=== PATIENT | male | born 1975 | race Caucasian/White ===

== ENCOUNTER 2016-05-29 10:23 | Emergency (ER) | payer SELFPAY ==
[~2016-05-29] VITALS: Ht 198.1 cm; Wt 137.0 kg
[2016-05-29 10:53] VITALS: Ht 198.1 cm; Wt 137.0 kg
--- NOTE | 2016-05-29 13:32 | RADRPT ---
PROCEDURE: Bilateral lower extremity Doppler CLINICAL INDICATION: Bilateral leg edema TECHNIQUE: Saba scale, color, and pulse wave Doppler examination of the veins of both lower extrem ities was performed with a high frequency linear transducer. The images were reviewed on a PACS wor kstation. COMPARISON: None. FINDINGS: There is no evidence for deep venous thrombosis of either lower extremity. The deep veins were full y compressible and normal augmentation was seen. No Jones's cyst was seen. No definite calf vein th rombus. IMPRESSION: No definite evidence for deep venous thrombosis of either lower extremity. RPTAT: [facility]BE Physician Mina Date Time Electronically viewed and signed by Stefanie Young Physician on 05/29/2016 13:31 LE/
--- NOTE | 2016-05-29 13:40 | ERD ---
ER Documentation Chief Complaint Date/Time DATE: 05/29/16 TIME: 13:37 Chief Complaint B/L LEG PAIN AND SWELLING TODAY WHEN HE WOKE UP , NO SOB HPI Patient is a 40-year-old male who states that he developed tingling and "shooting pain" in his bilateral legs today. He denies swelling or erythema. He states that he has not had this in the past. He does have a history of numbness and tingling in his right leg after sustaining an injury 3 years ago to his left leg. He denies difficulty walking. 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 He denies pain in his hips or knees. He states that he also has chest flutter that comes and goes. He also states that he is nervous about what this could and is having some anxiety. He states that he does not like coming to the doctor and is nervous about being at the ER. He denies chest pain, cough, shortness of breath or difficulty breathing. He denies fever , chills, nausea, vomiting or diarrhea. He denies headache, dizziness. However he states that after being in the waiting room, his pain and symptoms have resolved in his legs. He currently does not have complaints in the ED. ROS All systems reviewed and are negative except as per history of present illness. PMhx/Soc History of Surgery: No Anesthesia Reaction: No Hx Neurological Disorder: No Hx Respiratory Disorders: No Hx Cardiac Disorders: No Hx Psychiatric Problems: No Hx Miscellaneous Medical Probl: No Hx Alcohol Use: No Hx Substance Use: No Hx Tobacco Use: No Physical Exam Vitals Physical Exam GENERAL: Well-developed, well-nourished male. Appears in mild distress HEAD: Normocephalic, atraumatic. LUNG: Clear to auscultation bilaterally. No rhonchi, wheezing, rales or coarse breath sounds. HEART: Regular rate and rhythm. No murmurs, rubs or gallops. ABDOMEN: No scars, ecchymosis or rashes noted. Soft, nontender, and nondistended. Positive bowel sounds in all four quadrants. No rebound tenderness , no guarding. (-) McBurneys point tenderness. No CVA tenderness. BACK: No midline tenderness. Extremities: Equal pulses bilaterally. No peripheral clubbing, cyanosis or edema. No unilateral leg swelling. negative winnie sign. no erythema or tenderness. NEUROLOGIC: Alert and oriented. Moving all four extremities. 5/5 strength in all extremities. Normal speech. Steady gait. CN II-XII intact. SKIN: Normal color. Warm and dry. No rashes or lesions. Capillary refill < 2 seconds Procedures/MDM ER COURSE: I kept the patient and/or family informed of laboratory and diagnostic imaging results throughout the emergency room course. EKG, MONITORS, & DIAGNOSTIC IMAGING: EKG performed, read by Dr. Parekh 112 bpm, normal sinus rhythm, normal axis, no acute ST segment changes, no T wave inversion [place] [id number] Radiology Main Line: [phone] DIAGNOSTIC IMAGING REPORT Patient: HUBER HERNANDEZ : 1975 Age: 40 Sex: M MR #: [id number] DOS: 05/29/16 1232 Ordering MD: KATHY HESTER PA-C Location: [facility] Room/Bed: PROCEDURE: Chest Radiograph. CLINICAL INDICATION: Chest pressure TECHNIQUE: 2 frontal views of the chest para COMPARISON: None available FINDINGS: The heart is magnified. The cardiomediastinal silhouette is within normal limits. There is a calcified granuloma in the left mid lung zone. Lungs are otherwise clear. No infiltrate or effusion is seen. The bones are intact. IMPRESSION: 1. No evidence of acute cardiopulmonary disease. 2. Old granulomatous disease. RPTAT: KK .Rashad Dao MD, MD Date Time Electronically viewed and signed by .Rashad Dao MD, MD on 2016 13:51 .B/ CC: KATHY HESTER PA-C [place] [id number] Radiology Main Line: [phone] DIAGNOSTIC IMAGING REPORT Patient: HUBER HERNANDEZ : 1975 Age: 40 Sex: M MR #: [id number] DOS: 05/29/16 1232 Ordering MD: KATHY HESTER PA-C Location: [facility] Room/Bed: PROCEDURE: Bilateral lower extremity Doppler CLINICAL INDICATION: Bilateral leg edema TECHNIQUE: Saba scale, color, and pulse wave Doppler examination of the veins of both lower extremities was performed with a high frequency linear transducer. The images were reviewed on a PACS workstation. COMPARISON: None. FINDINGS: There is no evidence for deep venous thrombosis of either lower extremity. The deep veins were fully compressible and normal augmentation was seen. No Jones's cyst was seen. No definite calf vein thrombus. IMPRESSION: No definite evidence for deep venous thrombosis of either lower extremity. RPTAT: [facility]BE Physician Mina Date Time Electronically viewed and signed by Stefanie Young Physician on 05/29/2016 13 :31 LE/ CC: KATHY HESTER PA-C MEDICAL DECISION MAKING: This is a 40 year old male who presents with bilateral leg pain. Vital signs were reviewed. Patient is afebrile. Patient is not hypoxic. Patient has leg pain of uncertain etiology. I have consulted with Dr. Henao who has reviewed the imaging studies as well as EKG. Low suspicion for dislocation, fracture, septic joint, compartment syndrome, osteomyelitis, avascular necrosis, DVT, Achilles tendon rupture, cellulitis. At this time, unable to rule out any tendon and ligament injuries. Low suspicion for ACS, PE, AAA, dissection, DVT. I have very low suspicion for DVT or PE at this time as patient does not have leg swelling, no erythema, no SOB, no recent travel and no risk factors. Patient is asymptomatic on exam except for his increase in heart rate, which is likely related to stress and nerves he is experiencing in the ED. He states that he is feeling much better in regards to his nerves and anxiety after being in the waiting room and hearing his result. DISCHARGE: At this time, patient is stable for discharge and outpatient management with no new complaints during the ER course. Patient will be discharged home with instructions to recheck for new or worsening symptoms such as fever, nausea, weakness, LOC and to follow up with primary care in the next 1-2 days. Patient was advised to return to the ER for any new or worsening symptoms. Plan was discussed and patient and/or family understands and agrees. Home instructions were given. Departure Diagnosis: Primary Impression: Leg pain, bilateral Condition: Stable KATHY HESTER PA-C May 29, 2016 13:39 Primary Impression: Leg pain, bilateral Condition: Stable KATHY HESTER PA-C May 29, 2016 13:39
--- NOTE | 2016-05-29 13:51 | RADRPT ---
PROCEDURE: Chest Radiograph. CLINICAL INDICATION: Chest pressure TECHNIQUE: 2 frontal views of the chest para COMPARISON: None available FINDINGS: The heart is magnified. The cardiomediastinal silhouette is within normal limits. There is a calci fied granuloma in the left mid lung zone. Lungs are otherwise clear. No infiltrate or effusion is s een. The bones are intact. IMPRESSION: 1. No evidence of acute cardiopulmonary disease. 2. Old granulomatous disease. RPTAT: KK .Rashad Dao MD, MD Date Time Electronically viewed and signed by .Rashad Dao MD, on 05/29/2016 13:51 .B/
== END 2016-05-29 14:57 | disposition home or self-care (01) ==
LOC: FTE 10:23
DX: M79.605 Pain in left leg (principal); M79.604 Pain in right leg; R07.89 Other chest pain
CPT/HCPCS: 71010; 93005; 93965